=== PATIENT | female | born 1990 | race African-American/Black ===

== ENCOUNTER 2018-02-25 14:32 | Emergency (ER) | payer SELFPAY | END 2018-02-25 14:45 | disposition home or self-care (01) | LOC: ER 14:32 | DX: S01.112D Laceration without foreign body of left eyelid and periocular area, subsequent encounter (principal); F12.10 Cannabis abuse, uncomplicated; X58.XXXD Exposure to other specified factors, subsequent encounter | CPT/HCPCS: 99282 ==